=== PATIENT | female | born 1975 | race Caucasian/White ===

== ENCOUNTER 2022-02-10 12:24 | Emergency (ER) | payer OTHER ==
[2022-02-10 12:29] VITALS: BP 147/96; PULSE 94; RESP 18; TEMP 97.4
--- NOTE | 2022-02-10 12:45 | ED ---
Upper Extremity HPI - General Chief Complaint: Extremity Injury, Upper Stated Complaint: Fall, shoulder injury Time Seen by Provider: 02/10/22 12:30 Source: patient, RN notes reviewed Mode of arrival: ambulatory Limitations: no limitations - History of Present Illness Initial Comments: Patient is a 46 year old female presenting to the ER after falling yesterday and landing on her left shoulder. She states she was walking up step and tripped landing on her left shoulder. She is unable to abduct her arm without pain and has very limited pain-free ROM. She experiences most of her pain with abduction of the shoulder. Non-limited ROM of distal joints. Denies numbness or tingling distally. She denies LOC or any other injuries from the fall. She has not been taking any medication for the pain. She has been using a heating pack for the pain. - Related Data Previous Rx's Medication Instructions Recorded Ibuprofen [Motrin] 600 mg PO Q8HR PRN #20 tab 02/10/22 Allergies Allergy/AdvReac Type Severity Reaction Status Date / Time No Known Allergies Allergy Verified 02/10/22 12:29 Review of Systems ROS Statement: Those systems with pertinent positive or pertinent negative responses have been documented in the HPI. ROS Other: All systems not noted in ROS Statement are negative. Past Medical History Past Medical History: No Reported History History of Any Multi-Drug Resistant Organisms: None Reported Additional Past Surgical History / Comment(s): gastric surgery, jaw surgery Smoking Status: Current every day smoker Past Alcohol Use History: Occasional Past Drug Use History: None Reported General Exam Limitations: no limitations General appearance: alert, in no apparent distress Neck exam: Present: normal inspection. Absent: tenderness, meningismus, lymphadenopathy Respiratory exam: Present: normal lung sounds bilaterally. Absent: respiratory distress, wheezes, rales, rhonchi, stridor Cardiovascular Exam: Present: regular rate, normal rhythm, normal heart sounds. Absent: systolic murmur, diastolic murmur, rubs, gallop, clicks GI/Abdominal exam: Present: soft, normal bowel sounds. Absent: distended, tenderness, guarding, rebound, rigid Extremities exam: Present: normal inspection, full ROM (pain with active abduction of shoulder), tenderness (to palpation of AC joint and left trap. ), other Back exam: Present: normal inspection, other Neurological exam: Present: alert, oriented X3, CN II-XII intact Psychiatric exam: Present: normal affect, normal mood Skin exam: Present: warm, dry, intact, normal color. Absent: rash Course Vital Signs 02/10/22 12:25 Temperature 97.4 F L Pulse Rate 94 Respiratory 18 Rate Blood Pressure 147/96 O2 Sat by Pulse 98 Oximetry Medical Decision Making - Medical Decision Making X-ray shows distal clavicle fracture. Patient states placed in sling, provided pain control she does not want any current pain meds now but will take payments for at home. Patient will follow-up with orthopedics on-call. Return parameters were discussed. Disposition Clinical Impression: Fracture of left clavicle Disposition: HOME SELF-CARE Condition: Stable Instructions (If sedation given, give patient instructions): Clavicle Fracture (ED) Additional Instructions: Please return to the Emergency Department if symptoms worsen or any other concerns. Prescriptions: Ibuprofen [Motrin] 600 mg PO Q8HR PRN #20 tab PRN Reason: Pain Is patient prescribed a controlled substance at d/c from ED?: No Referrals: None,Stated [Primary Care Provider] - 1-2 days Smiley Ames DO [Doctor of Osteopathic Medicine] - 1-2 days Time of Disposition: 13:07
--- NOTE | 2022-02-10 13:03 | XR ---
EXAMINATION TYPE: XR shoulder complete LT DATE OF EXAM: 02/10/2022 12:48 PM INDICATION: Patient age:Female; 46 years old; Reason for study: fall, pain; COMPARISON: None TECHNIQUE: The left shoulder was examined in AP, internally rotated and scapular Y projections. . FINDINGS: Distal left clavicle fracture with near complete displacement. Visualized chest and other osseous str uctures appear intact. IMPRESSION: Left distal clavicle fracture with near complete displacement.
[2022-02-10] MEDS ORDERED: ACET/COD 300 MG/30 MG STARTER PACK 6 TAB BTL PO STA (13:07)
== END 2022-02-10 13:14 | disposition home or self-care (01) ==
LOC: EC 12:24
DX: S42.002A Fracture of unspecified part of left clavicle, initial encounter for closed fracture (principal); F17.200 Nicotine dependence, unspecified, uncomplicated; W01.0XXA Fall on same level from slipping, tripping and stumbling without subsequent striking against object, initial encounter
CPT/HCPCS: 99283

== ENCOUNTER → 2022-03-25 | Outpatient (CLI) | payer OTHER ==
--- NOTE | 2022-03-29 09:37 | MM ---
Reason for Exam: Screening (asymptomatic). Last mammogram was performed 5 year(s) and 10 month(s) ago. Patient History: Menarche at age 14. First Full-Term at age 22. Paternal aunt had breast cancer. Risk Values: Madhuri 5 year model risk: 0.7%. NCI Lifetime model risk: 8.6%. Prior Study Comparison: 05/23/2016 Bilateral MG screening mammo w CAD - 2, [place]. Tissue Density: The breast tissue is heterogeneously dense. This may lower the sensitivity of mammography. Findings: Analyzed By CAD. There is no suspicious group of microcalcifications or new suspicious mass in either breast. Overall Assessment: Negative, BI-RAD 1 Management: Screening Mammogram of both breasts in 1 year. A clinical breast exam by your physician is recommended on an annual basis and results should be correlated with mammographic findings. Electronically signed and approved by: Hunter Velázquez M.D.
== END | disposition home or self-care (01) ==
LOC: RADMAMWWP 11:18
PROVIDERS: ATTEND Family Medicine
DX: Z12.31 Encounter for screening mammogram for malignant neoplasm of breast (principal); Z80.3 Family history of malignant neoplasm of breast
CPT/HCPCS: 77063; 77067

== ENCOUNTER → 2023-04-10 | Outpatient (CLI) | payer OTHER ==
--- NOTE | 2023-04-11 19:02 | MM ---
Reason for Exam: Screening (asymptomatic). Last mammogram was performed 1 year(s) and 1 month(s) ago. Patient History: Menarche at age 14. First Full-Term at age 22. Paternal aunt had breast cancer. Risk Values: Madhuri 5 year model risk: 0.8%. NCI Lifetime model risk: 8.5%. Prior Study Comparison: 05/23/2016 Bilateral MG screening mammo w CAD - 2, [place]. 03/25/2022 Bilateral MG 3D screening mammo w/cad, [facility]. Tissue Density: The breast tissue is heterogeneously dense. This may lower the sensitivity of mammography. Findings: Analyzed By CAD. Pattern appears symmetrical and stable. No significant interval changes are evident. No suspicious groups of microcalcifications, spiculated or lobular masses, architectural distortion or other secondary signs of malignancy are mammographically apparent. Overall Assessment: Benign, BI-RAD 2 Management: Screening Mammogram of both breasts in 1 year. A negative mammogram report should not preclude additional follow up of suspicious palpable abnormalities. Patient should continue monthly self breast exam. A clinical breast exam by your physician is recommended on an annual basis and results should be correlated with mammographic findings. Electronically signed and approved by: Ronald Marquez D.O. Radiologis
== END | disposition home or self-care (01) ==
LOC: RADMAMWWP 10:58
PROVIDERS: ATTEND Family Medicine
DX: Z12.31 Encounter for screening mammogram for malignant neoplasm of breast (principal); Z80.3 Family history of malignant neoplasm of breast
CPT/HCPCS: 77063; 77067